=== PATIENT | female | born 1955 | race Caucasian/White ===

== ENCOUNTER 2024-07-21 06:58 | Day surgery (SDC) | payer MEDICARE, BC ==
[2024-07-21] MEDS ORDERED: Ondansetron 4 MG/2 ML SDV ONE (07:13)
[2024-07-21] MEDS ORDERED: fentaNYL 100 MCG/2 ML SDV ONE (07:13)
[2024-07-21] MEDS ORDERED: Propofol 200 MG/20 ML SDV ONE (07:13)
[2024-07-21] MEDS: Lactated Ringers 1,000 ML IV SCH (07:58)
== END 2024-07-21 10:20 | disposition home or self-care (01) ==
LOC: JP.SDS 06:58
PROVIDERS: ATTEND Family Medicine
DX: Z12.11 Encounter for screening for malignant neoplasm of colon (principal)
CPT/HCPCS: G0121; J2405; J2704; J3010; J7120

== ENCOUNTER 2024-10-05 07:31 | Day surgery (SDC) | payer MEDICARE, BC ==
[2024-10-05] MEDS: Sodium Chloride 0.9% 10 ML Syringe FLUSH PRN (08:17)
== END 2024-10-05 09:20 | disposition home or self-care (01) ==
LOC: JP.SDS 07:31
PROVIDERS: ATTEND Ophthalmology
DX: H25.12 Age-related nuclear cataract, left eye (principal)
CPT/HCPCS: 66984; V2632; 00142-QZ